=== PATIENT | female | born 1970 ===

== ENCOUNTER → 2023-04-26 | Outpatient (CLI) | payer OTHER ==
--- NOTE | 2023-04-27 09:09 | NM ---
EXAMINATION TYPE: NM liver and spleen static DATE OF EXAM: 04/26/2023 COMPARISON: Outside CT scan from [facility] 03/30/2023 CLINICAL INDICATION: Female, 52 years old with history of R22.9; Following administration of 5.3 mCi Tc 99m Sulfur Colloid. Images 30 minutes post injection FINDINGS: Liver and spleen are homogeneous in uptake of radiotracer with no focal defects. IMPRESSION: Liver and spleen scan demonstrates no definite abnormality.
== END | disposition home or self-care (01) ==
LOC: RADNMMAIN 10:30
PROVIDERS: ATTEND Family Medicine
DX: R22.9 Localized swelling, mass and lump, unspecified (principal)
CPT/HCPCS: 78215; A9541